=== PATIENT | female | born 1975 | race Two or more races ===

== ENCOUNTER 2025-01-17 18:05 | Emergency (ER) | payer OTHER ==
[~2025-01-17] VITALS: Ht 154.9 cm; Wt 54.2 kg
--- NOTE | 2025-01-17 18:30 | ECG ---
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
--- NOTE | 2025-01-17 18:38 | ED.PDOC ---
History of Present Illness HPI Comments Darlene Bonilla is a 49 yo female with non relevant past medical history. The patient came to ED via EMS with a chief complaint of 30 min ago she lost of consciousness while she was at home in the garage smoking marihuana and cigarettes with a friend. Prior to the episode, the patient reports feeling cold and dizzy. Her friend witness the episode that she described as a "seizure like" episode, with uncontrolled generalized "twitching" and eyes rolling. The episode last a couple of minutes, when she recovered consciousness she was confused and disoriented, this last approximate 3-5 minutes. The patient reports no remembering the episode. The patient reports falling to the ground face- first, hitting her chin; this produced bleeding and pain on the chin. During the episode the patient denies losing bladder or bowel control, bitting her tongue, she also denies fever, chills, nausea, vomit, diarrhea, starting new medications, sick contacts or recent travel. Upon arrival to the ED the patient reports she is still dizzy, VS: BP was 95/62mmH with HR: 97, peripheral glucose: 89mg/dl. EKG showed: sinus rhythm, borderline short DC interval, borderline right axis deviation. Labs and head CT scan will be ordered. 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 ) Family History Family History: Reviewed,noncontributory to illness Social History Smoker: Cigarettes, Less Than 1 Pack/Day Alcohol: Occasionally Drugs: Marijuana Lives In: Home Constitutional: reports: others (Dizziness); denies: chills, diaphoresis, fatigue, fever, malaise, sweats, weakness EENTM: denies: blurred vision, double vision, ear bleeding, ear discharge, ear drainage, ear pain, ear ringing, eye pain, eye redness, hearing loss, mouth pain, mouth swelling, nasal discharge, nose bleeding, nose congestion, nose pain, photophobia, tearing, throat pain, throat swelling, voice changes, others Respiratory: denies: cough, hemoptysis, orthopnea, SOB at rest, shortness of breath, SOB with excertion, stridor, wheezing, others Cardiovascular: denies: chest pain, dizzy spells, diaphoresis, Dyspnea on exertion, edema, irregular heart beat, left arm pain, lightheadedness, palpitations, PND, syncope, others Gastrointestinal: denies: abdomen distended, abdominal pain, blood streaked bowels, constipated, diarrhea, dysphagia, difficulty swallowing, hematemesis, melena, nausea, poor appetite, poor fluid intake, rectal bleeding, rectal pain, vomiting, others Genitourinary: denies: abnormal vagina bleeding, burning, dyspareunia, dysuria, flank pain, frequency, hematuria, incontinence, pain, , vagina discharge, urgency, others Neurological: reports: dizziness; denies: fainting, headache, left sided numbness, left sided weakness, numbness, paresthesia, pre-existing deficit, right sided numbness, right sided weakness, seizure, speech problems, tingling, tremors, weakness, others Physical Exam General Appearance: Mild Distress HEENT: Normal ENT Inspection, Pharynx Normal, TMs Normal Neck: Full Range of Motion, Non-Tender, Normal, Normal Inspection Respiratory: Chest Non-Tender, Lungs Clear, No Accessory Muscle Use, No Respiratory Distress, Normal Breath Sounds Cardiovascular: No Edema, No JVD, No Murmur, No Gallop, Normal Peripheral Pulses, Regular Rate/Rhythm Breast Exam: Deferred Gastrointestinal: No Organomegaly, Non Tender, No Pulsatile Mass, Normal Bowel Sounds, Soft Genitalia: Deferred Pelvic: Deferred Rectal: Deferred Extremities: No calf tenderness, Normal capillary refill, Normal inspection, Normal range of motion, Non-tender, No pedal edema Neurologic: Alert, quality facilitator II-XII nml as Tested, Dizziness, No Motor Deficits, Normal Affect, Normal Mood, No Sensory Deficits Cerebellar Function: Normal Reflexes: Normal Skin: Lacerations (There is a open laceration of approximate 3 cm over the chin, no activily bleeding, with a foreing body in it, looks like a piece of concrete. ) Lymphatic: No Adenopathy Was a procedure done? Was a procedure done?: Yes Sedation Sedation?: No Laceration Repair : Location Chin Length 3 cm Anesthetic: Lidocaine, With epi Laceration Repair Prep: Saline, by Irrigation Laceration Repair Wound Comple: epidermis/dermis repair, foreign body (Piece of concrete ) Laceration Repair: Number of sutures (3), Nylon (06), Simple, Non-adherent gauze Informed consent obtained: Yes Risks, benefits, and alternati: Yes EKG EKG : [place]: RAD Cardiac Rhythm: NSR Block: None Hypertrophy: None ST: Normal Comments EKG: sinus rhythm, borderline short DC interval, borderline right axis deviation. Differential Dx Considerations may include: #Syncope #Cardiac arrhythmia #R/O Breakthrough epileptic episode #Hypoglycemic episode #Drug induced loss of consciousness X-Ray, Labs, Meds, VS Vital Signs Date Time Temp Pulse Resp B/P (MAP) Pulse Ox O2 Delivery O2 Flow Rate FiO2 01/17/25 20:21 98.2 89 17 105/56 (72) 95 98.2 01/17/25 18:18 97 01/17/25 18:07 97.5 89 18 95/62 96 97.5 Lab Test 01/17/25 19:33 Range/Units White Blood Count 7.6 4.4-10.8 10^3/uL Red Blood Count 4.37 4.0-5.20 10^6/uL Hemoglobin 12.8 12.2-16.2 g/dL Hematocrit 37.5 36.0-46.0 % Mean Corpuscular Volume 85.6 80.0-100.0 fL Mean Corpuscular Hemoglobin 29.4 28.0-32.0 pg Mean Corpuscular Hemoglobin Concent 34.3 32.0-36.0 g/dL Red Cell Distribution Width 13.4 11.8-14.3 % Platelet Count 261 140-450 10^3/uL Mean Platelet Volume 8.5 6.9-10.8 fL Neutrophils (%) (Auto) 83.0 H 37.0-80.0 % Lymphocytes (%) (Auto) 10.9 10.0-50.0 % Monocytes (%) (Auto) 5.3 0.0-12.0 % Eosinophils (%) (Auto) 0.4 0.0-7.0 % Basophils (%) (Auto) 0.4 0.0-2.0 % Neutrophils # (Auto) 6.3 1.6-8.6 10 ^3/uL Lymphocytes # (Auto) 0.8 0.4-5.4 10 ^3/uL Monocytes # (Auto) 0.4 0-1.3 10 ^3/uL Eosinophils # (Auto) 0 0-0.8 10 ^3/uL Basophils # (Auto) 0 0-0.2 10 ^3/uL Nucleated Red Blood Cells 0.0 % Sodium Level 131 L 136-145 mmol/L Potassium Level 3.6 3.5-5.1 mmol/L Chloride Level 96 L 98-107 mmol/L Carbon Dioxide Level 28 20-31 mmol/L Anion Gap 7 5-15 Blood Urea Nitrogen 8 L 9-23 mg/dL Creatinine 0.72 0.550-1.02 mg/dL Glomerular Filtration Rate Calc 103 >90 mL/min BUN/Creatinine Ratio 11.1 10.0-20.0 Serum Glucose 118 H 74-106 mg/dL Calcium Level 9.3 8.7-10.4 mg/dL Beta HCG, Quantitative < 0.0 L 1.5-4.2 mIU/mL Plasma/Serum Blood Alcohol < 3.0 <10 mg/dL X-Ray, Labs, Meds, VS Comment The patient was re-evaluated. Patient reports she is still dizzy. Labs results: CBC and CMP are unremarkable. Images Reviewed?: Images reviewed and evaluated by me (and Dr. Vicente) Time of 1ST Reevaluation: 20:21 Reevaluation 1ST: Unchanged Patient Education/Counseling: Diagnosis, Treatment, Prognosis Family Education/Counseling: Diagnosis, Treatment, Prognosis SEPSIS Sepsis Screen Date sepsis recognized/suspect: Jan 17, 2025 Time Sepsis recognized/suspect: 1806 Recent Procedure: No On Antibiotic Therapy: No Respiratory Rate >20: No Heart Rate >90: No Temp<36 C (96.8 F) or >38.3 C: No SBP <90 or MAP <65 mmHG: No New Acute Mental Status Change: No Is the patient on CPAP, BIPAP,: No Physician Orders Urinalysis (01/17/25 18:35) Drug Screen (01/17/25 18:35) Orthostatic Vital Signs (01/17/25 18:38) Hydraulic Operator (01/17/25 ) Head Without Contrast (01/17/25 18:49) Vital Signs Date Time Temp Pulse Resp B/P (MAP) Pulse Ox O2 Delivery O2 Flow Rate FiO2 01/17/25 20:21 98.2 89 17 105/56 (72) 95 98.2 01/17/25 18:18 97 01/17/25 18:07 97.5 89 18 95/62 96 97.5 Laboratory Tests Test 01/17/25 19:33 White Blood Count 7.6 10^3/uL (4.4-10.8) Departure 1 Departure Time of Disposition: 21:11 Impression: Primary Impression: Vasovagal episode Additional Impression: Laceration of jaw Disposition: 01 HOME / SELF CARE / HOMELESS Condition: Good Referrals F/U DC clinic and PCP Stitches removal in 1 week Ibuprofen 600 mg po prn for pain Instruction about warning signs and when to come back to the nearest ED Discharged With: Friend Comments Goals of care discussed with the patient > 35 min. Discussed plan of care with Dr. Vicente Code status: Full code PCP: Does not recall name, at [place] Plan discussed with: Patient, the patient agrees with the plan. Critical Care Note Critical Care Time?: Yes (45 min-critical care time only) Stability Stability form required: No Stable for transfer: N/A Unstable for transfer: N/A Heart Score Heart Score: Heart Score Response (Comments) Value History Slightly Suspicious 0 EKG Normal 0 Age 45-64 1 Risk Factors No known risk factors 0 Troponin N/A 0 Total 1 ANDRES GRACE RESIDENT Jan 17, 2025 18:38
[2025-01-17] MEDS: LIDOCAINE W/ EPINEPHRINE 1% 20ML VIAL ID ONE (19:00)
[2025-01-17 19:55] LABS: Hematocrit 37.5 % (36.0-46.0); Hemoglobin 12.8 g/dL (12.2-16.2); Mean Corpuscular Hemoglobin 29.4 pg (28.0-32.0); Mean Corpuscular Volume 85.6 fL (80.0-100.0); Nucleated Red Blood Cells % 0.0 %
[2025-01-17 20:04] LABS: Potassium 3.6 mmol/L (3.5-5.1)
[2025-01-17 20:05] LABS: Anion Gap 7 (5-15); Carbon Dioxide 28 mmol/L (20-31)
[2025-01-17 20:06] LABS: Calcium 9.3 mg/dL (8.7-10.4)
[2025-01-17 20:11] LABS: BUN/Creatinine Ratio 11.1 (10.0-20.0)
[2025-01-17 20:13] LABS: Blood Urea Nitrogen 8 mg/dL (9-23); Chloride 96 mmol/L (98-107); Glucose 118 mg/dL (74-106); Sodium 131 mmol/L (136-145)
[2025-01-17 20:21] VITALS: BP 105/56; PULSE 89; RESP 17; TEMP 98.2; O2SAT 95
--- NOTE | 2025-01-17 20:46 | DVH ---
COMPUTERIZED TOMOGRAPHY OF THE HEAD WITHOUT CONTRAST REASON FOR STUDY: Head trauma COMPARISON: None TECHNIQUE: Helical tomographic scans were obtained through the brain. 2-D coronal and sagittal refor matted images are provided. Radiation optimization: All CT scans at this facility use at least one of these dose optimization techniques: Automated exposure control mA and/or kV adjustment per patient s ize (includes targeted exams where dose is matched to clinical indication) or iterative reconstructio n. RADIATION DOSE: CTDI: 48.89 mGy DLP: 686.12 mGy-cm FINDINGS: No suspicious intracranial hyperdensity to suggest acute blood. There is no mass effect n or midline shift. There is no hydrocephalus. The suprasellar cistern is intact. The calvarium is inta ct. The visualized mastoid air cells and paranasal sinuses are clear. IMPRESSION: No acute intracranial abnormality.
== END 2025-01-17 21:49 | disposition home or self-care (01) ==
LOC: ER 18:05
DX: S01.81XA Laceration without foreign body of other part of head, initial encounter (principal); R55 Syncope and collapse; R42 Dizziness and giddiness; F17.210 Nicotine dependence, cigarettes, uncomplicated; W19.XXXA Unspecified fall, initial encounter; Y93.9 Activity, unspecified; Y92.89 Other specified places as the place of occurrence of the external cause; Y99.8 Other external cause status
CPT/HCPCS: 12013; 36415; 70450; 80048; 80320; 84702; 85025; 93005